=== PATIENT | male | born 1990 | race Caucasian/White ===

== ENCOUNTER 2022-09-11 12:04 | Emergency (ER) | payer OTHER ==
[~2022-09-11] VITALS: Ht 180.3 cm; Wt 154.2 kg
[2022-09-11] MEDS ORDERED: Motrin,Rufen800 MG PO (15:22)
[2022-09-11] MEDS ORDERED: METHOCARBAMOL500 M1 PO (15:22)
== END 2022-09-11 15:58 | disposition home or self-care (01) ==
LOC: ED 12:04
DX: S30.1XXA Contusion of abdominal wall, initial encounter (principal); S20.219A Contusion of unspecified front wall of thorax, initial encounter; S80.11XA Contusion of right lower leg, initial encounter; V89.2XXA Person injured in unspecified motor-vehicle accident, traffic, initial encounter; Y93.89 Activity, other specified; Y92.89 Other specified places as the place of occurrence of the external cause; Y99.8 Other external cause status